=== PATIENT | female | born 1955 | race Caucasian/White ===

== ENCOUNTER 2024-03-11 09:26 | Day surgery (SDC) | payer BC, MEDICAID ==
[2024-03-05 15:57] LABS: BASOPHILS # (AUTO) 0.1 X10'3 (0-0.2); EOSINOPHILS # (AUTO) 0.2 X10'3 (0-0.9); EOSINOPHILS % (AUTO) 2.3 % (0-6); LYMPHOCYTES # (AUTO) 1.9 X10'3 (1.1-4.8); LYMPHOCYTES % (AUTO) 22.4 % (21-51); MEAN CORPUSCULAR HEMOGLOBIN 30.8 PG (27.0-31.0); MEAN CORPUSCULAR HGB CONC 33.5 g/dL (33.0-36.5); MEAN CORPUSCULAR VOLUME 91.7 FL (78-98); MONOCYTES # (AUTO) 0.6 X10'3 (0-0.9); MONOCYTES % (AUTO) 7.1 % (2-12); NEUTROPHILS # (AUTO) 5.7 X10'3 (1.8-7.7); NEUTROPHILS % (AUTO) 67.2 % (42-75); PRE OP HEMATOCRIT 39.9 % (35.0-45.0); PRE OP HEMOGLOBIN 13.4 g/dL (12.0-16.0); PRE OP PLATELET COUNT 202 X10'3 (140-440); PRE OP WHITE BLOOD COUNT 8.5 10'3 (4.8-10.8); RED BLOOD COUNT 4.35 X10'6 (4.20-5.60); RED CELL DISTRIBUTION WIDTH 14.3 % (11.5-14.5)
[2024-03-05 16:13] LABS: ALBUMIN 3.3 G/DL (3.4-5.0); ALBUMIN/GLOBULIN RATIO 0.9 (1.1-1.5); ALKALINE PHOSPHATASE 94 IU/L (46-116); BLOOD UREA NITROGEN 7 MG/DL (7-18); BUN/CREATININE RATIO 9.5 (10.0-20.0); CALCIUM 8.7 MG/DL (8.5-10.1); CHLORIDE 105 MMOL/L (99-107); CREATININE 0.74 MG/DL (0.40-0.90); PRE OP ALT 19 U/L (30-65); PRE OP ANION GAP 0 (8-16); PRE OP AST 17 U/L (10-37); PRE OP BILIRUB, TOTAL 0.5 MG/DL (0.0-1.0); PRE OP GLUCOSE 118 MG/DL (70-104); PRE OP POTASSIUM 3.5 MMOL/L (3.4-5.1); PRE OP SODIUM 140 MMOL/L (135-145); TOTAL CARBON DIOXIDE 35.1 MMOL/L (24-32); TOTAL PROTEIN 6.8 G/DL (6.4-8.2); eGFR 78 ML/MIN
[~2024-03-11] VITALS: Ht 157.5 cm; Wt 50.1 kg
[2024-03-11] VITALS (7 sets, daily range): BP systolic 73–121; BP diastolic 6–66; PULSE 61–65; RESP 13–16; TEMP 97.6; O2SAT 96–97
[2024-03-11] MEDS: clindamycin-Cleocin 900mg/D5W 50 ML IV ONE (05:30)
[~2024-03-11 09:26] MED LIST: ALBU90AE INH; BUDE10.2 PO; BUPIVAcaine/PF 2.5mg/ml (0.25%) 10ml vial ONE; MOME17SP5 NS; NORCO10T PO; OMEP20CA16 PO; PANT40TA54 PO; VITAMIN D3
[2024-03-11] MEDS: ringers solution, lacted 1,000 ML IV SCH (10:24)
[2024-03-11] MEDS: famotidine 20mg tablet PO ONE (10:24)
[2024-03-11] MEDS ORDERED: ringers solution, lacted 1,000 ML IV SCH (11:05)
[2024-03-11] MEDS ORDERED: ketorolac tromethamine 15mg/ml inj. IV ONE (11:05)
[2024-03-11] MEDS ORDERED: proCHLORperazine 10 MG/2 ml inj IV PRN (11:05)
[2024-03-11] MEDS ORDERED: labetalol 20mg/4ml (5mg/ml) syringe IV PRN (11:05)
[2024-03-11] MEDS ORDERED: ondansetron/PF 4mg/2ml inj IV PRN (11:05)
[2024-03-11] MEDS ORDERED: acetaminophen 1,000mg/100ml IV 100 ML IV ONE (11:05)
[2024-03-11] MEDS ORDERED: hydrALAZINE 20mg/ml inj. IV PRN (11:05)
[2024-03-11] MEDS ORDERED: fentaNYL/PF 50MCG/1 ML 2ML syringe IV PRN ×2 (11:05)
[2024-03-11] MEDS ORDERED: meperidine/PF 25mg/ml syringe IV PRN (11:05)
[2024-03-11] MEDS ORDERED: fentaNYL/PF 50MCG/1 ML 2ML syringe ONE (11:08)
[2024-03-11] MEDS ORDERED: midazolam 1 mg/ML 2ml injection ONE (11:14)
[2024-03-11] MEDS ORDERED: propofol inj 20 ML IV ONE (11:14)
[2024-03-11] MEDS: LIDOcaine 2% (20mg/ml) 5ml vial ONE (11:21)
[2024-03-11] MEDS: BUPIVAcaine/PF 2.5mg/ml (0.25%) 10ml vial IJ ONE (11:22)
== END 2024-03-11 12:25 | disposition home or self-care (01) ==
LOC: PAS 09:26
PROVIDERS: ATTEND Orthopaedic Surgery Hand Surgery
DX: G56.02 Carpal tunnel syndrome, left upper limb (principal); M65.312 Trigger thumb, left thumb; E78.5 Hyperlipidemia, unspecified; J43.9 Emphysema, unspecified; F41.9 Anxiety disorder, unspecified; K21.9 Gastro-esophageal reflux disease without esophagitis; I20.9 Angina pectoris, unspecified; I25.2 Old myocardial infarction; M19.90 Unspecified osteoarthritis, unspecified site; Z85.3 Personal history of malignant neoplasm of breast; Z79.899 Other long term (current) drug therapy; Z90.49 Acquired absence of other specified parts of digestive tract; Z90.710 Acquired absence of both cervix and uterus; Z98.890 Other specified postprocedural states; Z88.0 Allergy status to penicillin; Z88.2 Allergy status to sulfonamides; Z88.5 Allergy status to narcotic agent
CPT/HCPCS: 26055; 36415; 64721; 80053; 82948; 85025; 93005; J2250; J2704; J3010; J3490; J7030; J7120; Z7506; Z7512; A4215; A6449